=== PATIENT | male | born 1980 | race Caucasian/White ===

== ENCOUNTER 2020-08-03 08:08 | Emergency (ER) | payer BC ==
--- NOTE | 2020-08-03 08:35 | EDM.PDOC ---
ED HPI GENERAL MEDICAL PROBLEM - General Chief Complaint: Gastrointestinal Problem Stated Complaint: Hemorrhoids Time Seen by Provider: 08/03/20 08:12 Source of Information: Reports: Patient History Limitations: Reports: No Limitations - History of Present Illness INITIAL COMMENTS - FREE TEXT/NARRATIVE: The patient presents with a possible hemorrhoid. This started a few days ago. He feels a bulge in that area. He has had 1 in the past but it went away. He has no bleeding. He has no fever or chills. Onset: Gradual Duration: Day(s): (4) Location: Reports: Other (rectum) Quality: Reports: Sharp Severity: Severe Improves with: Reports: Immobilization Worsens with: Reports: Movement Context: Denies: Trauma Associated Symptoms: Reports: No Other Symptoms rectum Pain Score (Numeric/FACES): 8 - Related Data Allergies Allergy/AdvReac Type Severity Reaction Status Date / Time No Known Allergies Allergy Verified 08/03/20 08:22 Home Meds: Home Meds cephALEXin [Keflex] 500 mg PO Q6H #40 cap 08/03/20 [Rx] Past Medical History - Past Health History Medical/Surgical History: Denies Medical/Surgical History Social & Family History - Tobacco Use Tobacco Use Status *Q: Former Tobacco User Used Tobacco, but Quit: Yes Month/Year Tobacco Last Used: 2015 - Recreational Drug Use Recreational Drug Use: No ED ROS GENERAL - Review of Systems Review Of Systems: See Below Constitutional: Reports: No Symptoms HEENT: Reports: No Symptoms Respiratory: Reports: No Symptoms Cardiovascular: Reports: No Symptoms Endocrine: Reports: No Symptoms GI/Abdominal: Reports: No Symptoms : Reports: Other (Possible hemorrhoid) Musculoskeletal: Reports: No Symptoms Skin: Reports: No Symptoms ED EXAM, RENAL/ - Physical Exam Exam: See Below Exam Limited By: No Limitations General Appearance: Alert, No Apparent Distress Ears: Normal External Exam Nose: Normal Inspection Head: Atraumatic, Normocephalic Neck: Normal Inspection Respiratory/Chest: No Respiratory Distress Rectal (Males) Exam: Other (abscess to the posterior anus. It started draining when I took a look at it.) Course - Vital Signs Last Recorded V/S: Last Vital Signs Temp 97.8 F 08/03/20 08:20 Pulse 85 08/03/20 08:20 Resp 18 08/03/20 08:20 BP 145/90 H 08/03/20 08:20 Pulse Ox 100 08/03/20 08:20 - Re-Assessments/Exams Free Text/Narrative Re-Assessment/Exam: 08/03/20 08:46 He has an abscess. I will get him on some antibiotics. Departure - Departure Time of Disposition: 08:50 Disposition: Home, Self-Care 01 Condition: Good Clinical Impression: Abscess - Discharge Information *PRESCRIPTION DRUG MONITORING PROGRAM REVIEWED*: Not Applicable *COPY OF PRESCRIPTION DRUG MONITORING REPORT IN PATIENT JANIA: Not Applicable Prescriptions: cephALEXin [Keflex] 500 mg PO Q6H #40 cap Referrals: PCP,None [Primary Care Provider] - Isauro Bonner MD [Physician] - 1 Week Forms: ED Department Discharge Additional Instructions: Take the keflex 4 times per day for 10 days. Do a sits bath where you put some warm to hot water in the tub with soap and sit in it and clean the area. Do this at least 2 times per day and after bowel movements. Take tylenol or motrin for pain. Follow up with Dr Bonner. Please return if you are worse. Sepsis Event Note (ED) - Evaluation Sepsis Screening Result: No Definite Risk - Focused Exam Vital Signs: Vital Signs Temp Pulse Resp BP Pulse Ox 08/03/20 08:20 97.8 F 85 18 145/90 H 100
== END 2020-08-03 09:30 | disposition home or self-care (01) ==
LOC: JD.ED 08:08
DX: K61.0 Anal abscess (principal); Z87.891 Personal history of nicotine dependence
CPT/HCPCS: 99282; 99283